=== PATIENT | female | born 1975 | race Two or more races ===

== ENCOUNTER 2017-07-02 11:19 | Emergency (ER) | payer SELFPAY ==
--- NOTE | 2017-07-02 13:45 | ER Document Report ---
HPI - HPI Pain Level: 4 Notes: Patient is a 41-year-old female who presents ED complaining of right distal third digit redness and swelling times couple days. Patient states that she has severe pain to that area without any known injury or trauma. Patient states that she did have some purulent discharge initially, but that has since resolved. She has not noticed any red streaking. Patient is still able to move her finger but does have pain with movement at the DIP joint because of the swelling. Patient denies any drug allergies or significant past medical history otherwise. Denies any headache, fever, URI, sore throat, chest pain, palpitations, syncope, cough, shortness of breath, wheeze, dyspnea, abdominal pain, nausea/vomiting/diarrhea, numbness/tingling, muscle paralysis/weakness. - ROS Notes: REVIEW OF SYSTEMS: CONSTITUTIONAL : Denies fever, chills, or sweats. Denies recent illness. EENT: Denies eye, ear, throat, or mouth pain or symptoms. Denies nasal or sinus congestion or discharge. Denies throat, tongue, or mouth swelling or difficulty swallowing. CARDIOVASCULAR: Denies chest pain. Denies palpitations or racing or irregular heart beat. Denies ankle edema. RESPIRATORY: Denies cough, cold, or chest congestion. Denies shortness of breath, difficulty breathing, or wheezing. GASTROINTESTINAL: Denies abdominal pain or distention. Denies nausea, vomiting , or diarrhea. Denies blood in vomitus, stools, or per rectum. Denies black, tarry stools. Denies constipation. GENITOURINARY: Denies difficulty urinating, painful urination, burning, frequency, blood in urine, or discharge. MUSCULOSKELETAL: see hpi SKIN: see hpi NEUROLOGICAL: Denies confusion or altered mental status. Denies passing out or loss of consciousness. Denies dizziness or lightheadedness. Denies headache. Denies weakness or paralysis or loss of use of either side. Denies problems with gait or speech. Denies sensory loss, numbness, or tingling. ALL OTHER SYSTEMS REVIEWED AND NEGATIVE. Dictation was performed using [employer] voice recognition software - CARDIOVASCULAR Cardiovascular: DENIES: Chest pain - REPRODUCTIVE LMP: 2 weeks Reproductive: REPORTS: : - DERM Skin Color: Normal Past Medical History - Social History Smoking Status: Never Smoker Chew tobacco use (# tins/day): No Frequency of alcohol use: None Drug Abuse: None Family History: Malignancy - Past Medical History Cardiac Medical History: Reports: Hx Hypertension - after of child/no meds Denies: Hx Coronary Artery Disease, Hx Heart Attack Pulmonary Medical History: Denies: Hx Asthma, Hx Bronchitis, Hx COPD, Hx Pneumonia Neurological Medical History: Denies: Hx Cerebrovascular Accident, Hx Seizures Renal/ Medical History: Denies: Hx Peritoneal Dialysis Musculoskeltal Medical History: Denies Hx Arthritis Past Surgical History: Reports: Hx Tubal Ligation - Immunizations Immunizations up to date: Yes Hx Diphtheria, Pertussis, Tetanus Vaccination: Yes Vertical Provider Document - CONSTITUTIONAL Agree With Documented VS: Yes Notes: PHYSICAL EXAMINATION: GENERAL: Well-appearing, well-nourished and in no acute distress. NECK: Normal range of motion, supple without lymphadenopathy. No rigidity. LUNGS: Breath sounds clear to auscultation bilaterally and equal. No wheezes rales or rhonchi. HEART: Regular rate and rhythm without murmurs, rubs, gallops. Musculoskeletal: Rt hand: LROM to DIP jt of 3rd digit. Otherwise: FROM to passive/active. Strength 5+/5. + erythema, inflammation, tenderness to the posterior distal 3rd digit near DIP jt. No obvious purulent discharge, red streaks, or abscess noted. N/V intact distal. Extremities: No cyanosis, clubbing, or edema b/l. Peripheral pulses 2+. Capillary refill less than 3 seconds. PSYCH: Normal mood, normal affect. SKIN: see MSK exam. Warm, Dry, normal turgor, no rashes or lesions noted. - INFECTION CONTROL TRAVEL OUTSIDE OF THE [place] IN LAST 30 DAYS: No - RESPIRATORY O2 Sat by Pulse Oximetry: 96 Course - Re-evaluation Re-evalutation: 07/02/17 15:35 Patient is an afebrile, well-hydrated, 41-year-old female who presents the ED with a posterodistal 3rd digit infection. Vitals are stable. PE otherwise unremarkable. Patient is neurovascularly intact without any rupture noted. No I&D warranted at this time. X-ray unremarkable for any acute pathology. I will send her home with a prescription for doxycycline to take twice a day for 10 days as directed. Low suspicion for any tenosynovitis, septic joint, osteo- myelitis, necrotizing fasciitis, sepsis, or other systemic emergent condition at this time. Patient is aware that her condition can change from initial presentation and she needs to monitor symptoms closely and seek medical attention if any acute changes. Conservative measures otherwise for symptoms. Recheck with your PCM in 2-3 days. Consider consult with orthopedics as physical therapy. Return to the ED with any worsening/concerning symptoms otherwise as reviewed in discharge. Patient is in agreement. - Vital Signs Vital signs: Temp Pulse Resp BP Pulse Ox 98.2 F 65 16 145/78 H 96 07/02/17 11:39 07/02/17 11:39 07/02/17 11:39 07/02/17 11:39 07/02/17 11:39 Discharge - Discharge Clinical Impression: Finger infection Condition: Stable Disposition: HOME, SELF-CARE Instructions: Cellulitis ([facility]), Doxycycline ([facility]) Additional Instructions: Rest, Ice, Compression, Elevation Tylenol/ibuprofen as needed Moist warm compresses may help F/u with your PCP in 2-3 days for a recheck Consider consult(s) with Orthopedics/physical therapy for ongoing/worsening symptoms Return to the ED with any worsening symptoms and/or development of fever, headache, chest pain, palpitations, syncope, shortness of breath, trouble breathing, abdominal pain, n/v/d, muscle weakness/paralysis, numbness/tingling, swelling, redness, or other worsening symptoms that are concerning to you. Prescriptions: Doxycycline Hyclate 100 mg PO BID #20 capsule Forms: Elevated Blood Pressure Referrals: [facility] [Provider Group] - Follow up as needed
[2017-07-02] MEDS ORDERED: HYDROCODONE/ACETAMINOPHEN 5-325 MG TABLET PO ONE (15:15)
[2017-07-02] MEDS ORDERED: HYDROCODONE/ACETAMINOPHEN 5-325 MG 6 TAB/DSPK PO PRN (15:15)
[2017-07-02] MEDS ORDERED: IBUPROFEN 800 MG TABLET PO ONE (15:26)
--- NOTE | 2017-07-02 15:35 | RADIOLOGY REPORT (SQ) ---
EXAM DESCRIPTION: FINGER RIGHT COMPLETED DATE/TIME: 07/02/2017 3:12 pm REASON FOR STUDY: 3rd distal digit erythema/swelling COMPARISON: None. NUMBER OF VIEWS: Three views. TECHNIQUE: AP, lateral, and oblique images acquired of the right third finger. LIMITATIONS: None. FINDINGS: MINERALIZATION: Normal. BONES: No acute fracture or dislocation. No worrisome bone lesions. SOFT TISSUES: No soft tissue swelling. No foreign body. OTHER: No other significant finding. IMPRESSION: NO RADIOGRAPHIC EVIDENCE OF ACUTE INJURY. COMMENT: SITE OF TRAUMA/COMPLAINT MARKED/STAMP COMPLETED: NOT APPLICABLE. TECHNICAL DOCUMENTATION: JOB ID: [id number] [employer]- All Rights Reserved
[2017-07-02 16:00] VITALS: BP 154/85
== END 2017-07-02 16:05 | disposition home or self-care (01) ==
LOC: ER 11:19
DX: L08.9 Local infection of the skin and subcutaneous tissue, unspecified (principal); Z98.51 Tubal ligation status
CPT/HCPCS: 99283

== ENCOUNTER → 2018-11-19 | Outpatient (CLI) | payer BC ==
[2018-11-19 09:55] LABS: HEMATOCRIT 39.9 % (36.0-47.0); MEAN CORPUSCULAR HEMOGLOBIN 24.9 pg (27.0-33.4); MEAN CORPUSCULAR HGB CONC 32.5 g/dL (32.0-36.0); MEAN CORPUSCULAR VOLUME 77 fl (80-97); PLATELET COUNT 211 10^3/uL (150-450); RED BLOOD COUNT 5.22 10^6/uL (3.72-5.28); RED CELL DISTRIBUTION WIDTH 15.7 % (11.5-14.0); WHITE BLOOD COUNT 5.2 10^3/uL (4.0-10.5)
[2018-11-19 10:20] LABS: ALANINE AMINOTRANSFERASE 83 U/L (9-52); ALBUMIN 4.3 g/dL (3.5-5.0); ALKALINE PHOSPHATASE 81 U/L (38-126); ANION GAP 9 (5-19); ASPARTATE AMINO TRANSFERASE 68 U/L (14-36); BILIRUBIN,DIRECT 0.3 mg/dL (0.0-0.4); BILIRUBIN,TOTAL 0.8 mg/dL (0.2-1.3); BLOOD UREA NITROGEN 12 mg/dL (7-20); CALCIUM 9.1 mg/dL (8.4-10.2); CARBON DIOXIDE 28 mmol/L (22-30); CHLORIDE 105 mmol/L (98-107); CHOLESTEROL 184.54 mg/dL (0-200); GLUCOSE 105 mg/dL (75-110); POTASSIUM 4.3 mmol/L (3.6-5.0); SODIUM 142.4 mmol/L (137-145); TOTAL PROTEIN 7.5 g/dL (6.3-8.2); TRIGLYCERIDES 158 mg/dL (<150)
[2018-11-19 10:30] LABS: DIRECT LDL 119 mg/dL (<100)
[2018-11-19 10:35] LABS: VLDL CHOLESTEROL 31.6 mg/dL (10-31)
[2018-11-19 14:58] LABS: GAMMA-GLUTAMYL TRANSFERASE 31 U/L (8-78)
[2018-11-20 08:44] LABS: HEPATITIS A AB IGM Negative (Negative); HEPATITIS B CORE AB IGM Negative (Negative); HEPATITS B SURFACE ANTIGEN Negative (Negative)
[2018-11-20 13:23] LABS: HEPATITIS C VIRUS ANTIBODY <0.1 s/co ratio (0.0-0.9)
== END ==
LOC: LAB 09:23
PROVIDERS: ATTEND Physician Assistant
DX: I10 Essential (primary) hypertension (principal); E66.09 Other obesity due to excess calories; R94.5 Abnormal results of liver function studies
CPT/HCPCS: 36415; 80048; 80061; 80074; 80076; 82977; 84443; 85027

== ENCOUNTER 2019-11-05 09:24 | Emergency (ER) | payer BC ==
--- NOTE | 2019-11-05 10:51 | ER Document Report ---
ED Medical Screen (RME) - General Chief Complaint: Arm Pain Stated Complaint: ARM PAIN Time Seen by Provider: 11/05/19 10:48 Primary Care Provider: KAYLA VILLAGRAN PA-C [Primary Care Provider] - Follow up as needed Mode of Arrival: Ambulatory Information source: Patient Notes: 44-year-old female presents to ED for complaint of red swollen painful left elbow. She does have multiple abscesses she is MRSA a positive tubal abscesses. This is right on the joint. There is swelling all around the joint. He has limited range of motion due to the pain and swelling. We will get x-rays labs and have patient seen by another provider. Patient has never had an abscess on her joint before and is never had any osteomyelitis in the past. I have greeted and performed a rapid initial assessment of this patient. A comprehensive ED assessment and evaluation of the patient, analysis of test results and completion of medical decision making process will be conducted by an additional ED providers. TRAVEL OUTSIDE OF THE [place] IN LAST 30 DAYS: No - Related Data Allergies/Adverse Reactions: No Known Allergies Allergy (Verified 11/05/19 10:47) Past Medical History - Past Medical History Cardiac Medical History: Reports: Hx Hypertension - after of child/no meds Denies: Hx Coronary Artery Disease, Hx Heart Attack Pulmonary Medical History: Denies: Hx Asthma, Hx Bronchitis, Hx COPD, Hx Pneumonia Neurological Medical History: Denies: Hx Cerebrovascular Accident, Hx Seizures Renal/ Medical History: Denies: Hx Peritoneal Dialysis Musculoskeltal Medical History: Denies Hx Arthritis Past Surgical History: Reports: Hx Tubal Ligation - Immunizations Immunizations up to date: Yes Hx Diphtheria, Pertussis, Tetanus Vaccination: Yes Physical Exam - Vital signs Vitals: Temp Pulse Resp BP Pulse Ox 98.7 F 88 18 150/92 H 94 11/05/19 10:11/05/19 10:11/05/19 10:11/05/19 10:11/05/19 10:09 Course - Vital Signs Vital signs: Temp Pulse Resp BP Pulse Ox 98.7 F 88 18 150/92 H 94 11/05/19 10:11/05/19 10:11/05/19 10:11/05/19 10:11/05/19 10:09 Doctor's Discharge - Discharge Referrals: KAYLA VILLAGRAN PA-C [Primary Care Provider] - Follow up as needed
[2019-11-05 11:26] LABS: ABSOLUTE BASOPHILS # (AUTO) 0.1 10^3/uL (0.0-0.2); ABSOLUTE EOSINOPHILS # (AUTO) 0.2 10^3/uL (0.0-0.6); ABSOLUTE LYMPHOCYTES (AUTO) 2.2 10^3/uL (0.5-4.7); ABSOLUTE MONOCYTES (AUTO) 0.9 10^3/uL (0.1-1.4); BASOPHILS % (AUTO) 0.5 % (0-2); EOSINOPHILS % (AUTO) 1.4 % (0-6); HEMATOCRIT 38.3 % (36.0-47.0); HEMOGLOBIN 12.5 g/dL (12.0-15.5); LYMPHOCYTES % (AUTO) 18.1 % (13-45); MEAN CORPUSCULAR HEMOGLOBIN 25.3 pg (27.0-33.4); MEAN CORPUSCULAR HGB CONC 32.6 g/dL (32.0-36.0); MEAN CORPUSCULAR VOLUME 78 fl (80-97); MONOCYTES % (AUTO) 7.3 % (3-13); PLATELET COUNT 257 10^3/uL (150-450); RED BLOOD COUNT 4.94 10^6/uL (3.72-5.28); RED CELL DISTRIBUTION WIDTH 15.4 % (11.5-14.0); SEGMENTED NEUTROPHILS % (AUTO) 72.7 % (42-78); TOTAL CELLS COUNTED % (AUTO) 100 %; WHITE BLOOD COUNT 12.4 10^3/uL (4.0-10.5)
[2019-11-05 11:49] LABS: APPEARANCE,URINE CLEAR; BILIRUBIN,URINE NEGATIVE (NEGATIVE); COLOR,URINE YELLOW; GLUCOSE, URINE NEGATIVE (NEGATIVE); KETONES,URINE NEGATIVE (NEGATIVE); PROTEIN,URINE NEGATIVE (NEGATIVE); URINE SPECIFIC GRAVITY 1.009; UROBILINOGEN,URINE NEGATIVE mg/dL (<2.0)
[2019-11-05 11:55] LABS: ALBUMIN 4.2 g/dL (3.5-5.0); ALKALINE PHOSPHATASE 97 U/L (38-126); ANION GAP 12 (5-19); ASPARTATE AMINO TRANSFERASE 35 U/L (14-36); BILIRUBIN,DIRECT 0.3 mg/dL (0.0-0.4); BILIRUBIN,TOTAL 0.7 mg/dL (0.2-1.3); BLOOD UREA NITROGEN 9 mg/dL (7-20); C-REACTIVE PROTEIN 82.7 mg/L (<10.0); CALCIUM 9.2 mg/dL (8.4-10.2); CARBON DIOXIDE 26 mmol/L (22-30); CHLORIDE 103 mmol/L (98-107); GLUCOSE 82 mg/dL (75-110); POTASSIUM 4.3 mmol/L (3.6-5.0); TOTAL PROTEIN 7.9 g/dL (6.3-8.2)
--- NOTE | 2019-11-05 11:55 | RADIOLOGY REPORT (SQ) ---
EXAM DESCRIPTION: ELBOW LEFT OVER 2 VIEWS COMPLETED DATE/TIME: 11/05/2019 11:32 am REASON FOR STUDY: Inflamed infected left elbow COMPARISON: None. NUMBER OF VIEWS: Four views. TECHNIQUE: AP, lateral, and both oblique radiographic images acquired of the left elbow. LIMITATIONS: None. FINDINGS: MINERALIZATION: Normal. BONES: No acute fracture or dislocation. The corticated osseous fragments at the humeral epicondyles could represent the sequela of chronic epicondylitis. JOINT: No effusion, periarticular osteopenia or erosion. SOFT TISSUES: Mild diffuse soft tissue swelling. OTHER: No other finding. IMPRESSION: Mild diffuse soft tissue swelling without an associated acute osseous abnormality of the left elbow. TECHNICAL DOCUMENTATION: JOB ID: [id number] [employer]- All Rights Reserved Reading location - IP/workstation name: [email or web address]
[2019-11-05 12:04] LABS: ERYTHROCYTE SEDIMENTATION RATE 45 mm/hr (0-20)
--- NOTE | 2019-11-05 13:18 | ER Document Report ---
ED General - General Chief Complaint: Abscess Stated Complaint: ARM PAIN Time Seen by Provider: 11/05/19 10:48 Primary Care Provider: KAYLA VILLAGRAN PA-C [PHYSICIAN SOCIAL WORK [employer]URER] - Follow up as needed Mode of Arrival: Ambulatory Notes: Patient is a 44-year-old female with a past medical history of MRSA and abscess formations who presents to the emergency department the chief complaint of similar complaints for the past couple days. The patient reports she is going on a cruise in 2 days and wants this resolved. She denies any drainage from the area. States that the area is red, warm and tender to the touch. Admits to some mild swelling. States this does not feel exactly like prior abscess formations because they have opened and drained in the past. She states this does not feel like there is any fluid. She denies any history of osteomyelitis. She denies any fever, nausea, vomiting, diarrhea, chills, night sweats. TRAVEL OUTSIDE OF THE [place] IN LAST 30 DAYS: No - Related Data Allergies/Adverse Reactions: No Known Allergies Allergy (Verified 11/05/19 10:47) Past Medical History - General Information source: Patient - Social History Smoking Status: Former Smoker Frequency of alcohol use: None Drug Abuse: None Family History: Malignancy Patient has suicidal ideation: No Patient has homicidal ideation: No - Past Medical History Cardiac Medical History: Reports: Hx Hypertension - after of child/no meds Denies: Hx Coronary Artery Disease, Hx Heart Attack Pulmonary Medical History: Denies: Hx Asthma, Hx Bronchitis, Hx COPD, Hx Pneumonia Neurological Medical History: Denies: Hx Cerebrovascular Accident, Hx Seizures Renal/ Medical History: Denies: Hx Peritoneal Dialysis Musculoskeletal Medical History: Denies Hx Arthritis Past Surgical History: Reports: Hx Tubal Ligation - Immunizations Immunizations up to date: Yes Hx Diphtheria, Pertussis, Tetanus Vaccination: Yes Review of Systems - Review of Systems Skin: Change in color -: Yes All other systems reviewed and negative Physical Exam - Vital signs Vitals: Temp Pulse Resp BP Pulse Ox 98.7 F 88 18 150/92 H 94 11/05/19 10:11/05/19 10:11/05/19 10:11/05/19 10:11/05/19 10:09 - General General appearance: Appears well, Alert - Respiratory Respiratory status: No respiratory distress Chest status: Nontender Breath sounds: Normal Chest palpation: Normal - Cardiovascular Rhythm: Regular Heart sounds: Normal auscultation - Extremities General upper extremity: Other - Near full range of motion of the left elbow. There is moderate erythema the posterior left elbow with some centralized induration. There is no fluctuance appreciated. No proximal streaking. General lower extremity: Normal inspection, Nontender, Normal color, Normal ROM, Normal temperature, Normal weight bearing. No: Jessie's sign - Neurological Neuro grossly intact: Yes Cognition: Normal Orientation: AAOx4 [place] Coma Scale Eye Opening: Spontaneous [place] Coma Scale Verbal: Oriented [place] Coma Scale Motor: Obeys Commands [place] Coma Scale Total: 15 Speech: Normal - Psychological Associated symptoms: Normal affect, Normal mood - Skin Skin Temperature: Warm Skin Moisture: Dry Skin Color: Other - Erythematous area of cellulitis to the posterior left elbow Course - Re-evaluation Re-evalutation: 11/05/19 13:21 Offered patient attempted I&D though I feel there is no fluid present for drainage. She declined any intervention as she wants to be able to get in the pool and go swimming in the ocean when she goes on her cruise in 2 days and does not want an open wound. She will be placed on Bactrim DS. Counseled her regarding the importance of follow-up in 2 days before she goes on a cruise to ensure improvement. We discussed the importance of returning here or any ER immediately with any new, persistent or worsening symptoms. She verbalized understood and agreed. - Vital Signs Vital signs: Temp Pulse Resp BP Pulse Ox 98.7 F 88 18 150/92 H 94 11/05/19 10:09 11/05/19 10:09 11/05/19 10:09 11/05/19 10:09 11/05/19 10:09 - Laboratory Result Diagrams: 11/05/19 11:00 11/05/19 11:00 Laboratory results interpreted by me: 11/05/19 11/05/19 11/05/19 11:00 11:00 11:00 WBC 12.4 H MCV 78 L MCH 25.3 L RDW 15.4 H Absolute Neuts (auto) 9.0 H ESR 45 H C-Reactive Protein 82.7 H Leukocyte Esterase Rfl SMALL H Discharge - Discharge Clinical Impression: Cellulitis Qualifiers: Site of cellulitis: other site Qualified Code(s): L03.818 - Cellulitis of other sites Condition: Stable Disposition: HOME, SELF-CARE Instructions: Trimethoprim-Sulfa ([facility]), MRSA Cellulitis ([facility]) Additional Instructions: Follow-up with your regular doctor in 2 to 3 days for reevaluation. Return here or any ER immediately with any new, persistent or worsening symptoms. Prescriptions: Sulfamethoxazole/Trimethoprim [Bactrim Ds Tablet] 1 each PO BID #20 tablet Referrals: KAYLA VILLAGRAN PA-C [PHYSICIAN SOCIAL WORK LECTURER] - Follow up as needed
[2019-11-05 14:13] VITALS: BP 156/95
== END 2019-11-05 14:22 | disposition home or self-care (01) ==
LOC: ER 09:24
DX: L03.818 Cellulitis of other sites (principal); L02.419 Cutaneous abscess of limb, unspecified; Z87.891 Personal history of nicotine dependence
CPT/HCPCS: 36415; 80053; 81001; 85025; 85652; 86140; 87040; 87086; 99283